=== PATIENT | male | born 2000 | race Caucasian/White ===

== ENCOUNTER 2022-01-06 11:50 | Emergency (ER) | payer BC ==
[~2022-01-06] VITALS: Ht 180 cm; Wt 86.0 kg
[2022-01-06 11:50] VITALS: BP 132/79
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
--- NOTE | 2022-01-06 13:21 | Diagnostic Imaging Report ---
INDICATION: Shortness of air, nausea, and vomiting. FINDINGS: The lungs are clear. No failure, effusion, or pneumothorax. IMPRESSION: No acute appearing abnormality. Dictated by: Dictated on workstation # [id number]
[2022-01-06] MEDS ORDERED: KETOROLAC 60 MG/2 ML VIAL IM ONE (14:00)
== END 2022-01-06 14:33 | disposition home or self-care (01) ==
LOC: EDUNIT# 11:50 → ER 11:52
DX: M94.0 Chondrocostal junction syndrome [Tietze] (principal); Z20.822 Contact with and (suspected) exposure to COVID-19
CPT/HCPCS: 71045; 87636; 93005

== ENCOUNTER 2023-01-11 12:48 | Emergency (ER) | payer OTHER, BC ==
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
[2023-01-11 13:13] LABS: BASOPHILS # (AUTO) 0.1 10^3/uL (0.0-0.1); BASOPHILS % (AUTO) 1 % (0-10); EOSINOPHILS # (AUTO) 0.6 10^3/uL (0.0-0.3); EOSINOPHILS % (AUTO) 5 % (0-10); HEMATOCRIT 43 % (40-54); LYMPHOCYTES # (AUTO) 3.1 10^3/uL (1.0-4.0); LYMPHOCYTES % (AUTO) 30 % (12-44); MEAN CORPUSCULAR HEMOGLOBIN 30 pg (25-34); MEAN CORPUSCULAR HGB CONC 35 g/dL (32-36); MEAN CORPUSCULAR VOLUME 85 fL (80-99); MEAN PLATELET VOLUME 10.6 fL (9.0-12.2); MONOCYTES # (AUTO) 0.8 10^3/uL (0.0-1.0); MONOCYTES % (AUTO) 8 % (0-12); NEUTROPHILS # (AUTO) 5.7 10^3/uL (1.8-7.8); NEUTROPHILS % (AUTO) 56 % (42-75); PLATELET COUNT 200 10^3/uL (130-400); WHITE BLOOD COUNT 10.2 10^3/uL (4.3-11.0)
[2023-01-11 13:17] LABS: ALBUMIN 4.4 GM/DL (3.2-4.5); CHLORIDE 107 MMOL/L (98-107); SODIUM 142 MMOL/L (135-145)
[2023-01-11 13:18] LABS: CALCIUM 9.6 MG/DL (8.5-10.1)
[2023-01-11 13:19] LABS: GLUCOSE 89 MG/DL (70-105); TOTAL PROTEIN 7.3 GM/DL (6.4-8.2)
[2023-01-11 13:20] LABS: CARBON DIOXIDE 25 MMOL/L (21-32)
[2023-01-11 13:21] LABS: BILIRUBIN,TOTAL 0.7 MG/DL (0.1-1.0)
[2023-01-11 13:23] LABS: ALKALINE PHOSPHATASE 68 U/L (40-136); GFR ESTIMATED 88
[2023-01-11 13:24] LABS: BUN/CREATININE RATIO 13
[2023-01-11 13:26] LABS: ALANINE AMINOTRANSFERASE 30 U/L (0-55)
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
[2023-01-11 14:18] VITALS: BP 113/68
== END 2023-01-11 14:19 | disposition home or self-care (01) ==
LOC: EDUNIT# 12:48 → ER 12:51
DX: S20.311A Abrasion of right front wall of thorax, initial encounter (principal); M25.551 Pain in right hip; R10.84 Generalized abdominal pain; M54.50 Low back pain, unspecified; M54.2 Cervicalgia; R51.9 Headache, unspecified; V43.52XA Car driver injured in collision with other type car in traffic accident, initial encounter; Y92.410 Unspecified street and highway as the place of occurrence of the external cause
CPT/HCPCS: 70450; 71045; 71250; 72125; 72128; 72131; 73502; 74176; 80053; 85025; 99284; G0480; 36415; 80320; 99291